=== PATIENT | male | born 1960 | race Caucasian/White ===

== ENCOUNTER 2017-05-06 13:11 | Emergency (ER) | payer BC ==
[~2017-05-06] VITALS: Ht 177.8 cm; Wt 83.7 kg
[~2017-05-06 13:11] MED LIST: AMLODIPINE BESY10 MG PO; PRILOSEC10 MG PO
[2017-05-06] MEDS ORDERED: LORTAB 5-325 M1 EACH PO (14:34)
[2017-05-06 14:55] VITALS: BP 137/87
== END 2017-05-06 14:56 | disposition home or self-care (01) ==
LOC: EME 13:11
DX: M43.6 Torticollis (principal); K21.9 Gastro-esophageal reflux disease without esophagitis; I10 Essential (primary) hypertension; Z88.0 Allergy status to penicillin
CPT/HCPCS: 80053; 81003; 85025; 99281; 99283